=== PATIENT | female | born 1960 | race Caucasian/White ===

== ENCOUNTER → 2021-11-15 | Day surgery (SDC) | payer BC ==
[~2021-11-15] MED LIST: Ketamine 200 MG/20 ML MDV ONE; Lactated Ringers 1,000 ML IV SCH; Propofol 200 MG/20 ML SDV ONE; fentaNYL 100 MCG/2 ML SDV ONE
[2021-11-15 12:48] VITALS: BP 117/55; PULSE 79
== END ==
LOC: CC.SDS 10:38
PROVIDERS: ATTEND Family Medicine
DX: K63.5 Polyp of colon (principal); K57.30 Diverticulosis of large intestine without perforation or abscess without bleeding; E78.5 Hyperlipidemia, unspecified; R79.89 Other specified abnormal findings of blood chemistry; Z88.2 Allergy status to sulfonamides; Z80.0 Family history of malignant neoplasm of digestive organs
CPT/HCPCS: J7120